=== PATIENT | female | born 1940 | race Caucasian/White ===

== ENCOUNTER 2016-02-20 10:30 | Outpatient (RCR) | payer MEDICARE ==
--- NOTE | 2016-01-18 13:15 | PT/OT/ST INITIAL EVALUATION ---
Department of Health and Human Services Form Approved Health Care Financing Administration OMB No. [id number] PLAN OF CARE/ASSESSMENT FOR OUTPATIENT REHABILITATION (Complete for Initial Claims Only) 1. LAST NAME Nolberto FIRST NAME Holly Guallpa 2. ACC # [id number] 3. [facility] [id number] 4. PROVIDER NO. [id number] 5. TYPE: X PT 6. REFERRING PHYSICIAN Dr. Graciela Tiardo 7. PRIMARY DX Unsteady gait and right 8th rib fracture. 8. SECONDARY DX 9. ONSET DATE 01/08/2016 10. REFERRAL DATE 01/11/2016 11. SOC. DATE/TIME 01/14/2016 10:22 12. PRIOR LEVEL OF FUNCTION; PERTINENT HISTORY (Prior therapy results, reason for referral.) S: Prior to today's session, the patient and her did consent to today's treatment including evaluation. The patient is a 75-year-old female who fell on 01/08/2016 after losing her balance. She hit a vanity and fractured her 8th rib on the right side. The patient isn't mentally responsive this date, therefore her provides most of the answers and information this date. He reports that the patient has had frequent falls over the last year with one resulting in a head injury requiring sameer and several falls have occurred outside of the home on uneven surfaces. Currently the patient is ambulating indoors without an assistive device, and will ascend and descend the 18 steps to their basement as recently as yesterday. The patient's does assist her with showers, as well as ambulates close by when they are ambulating outdoors. They do live in a house that has entry stairs with no handrail; therefore he does have to assist her with the stairs as well. Prior level of function: Within the last several months, the patient was working out at the [employer] on a regular basis; however, approximately 2 months ago the patient had decreased interest in exercising there. Current function: The patient is ambulating approximately 30 to 40 yards per her 's report prior to an onset of increased unsteadiness. The patient's also notes that she has had a decreased interest in exercise and is becoming more sedentary. Therapy History: The patient has had physical therapy services secondary to prior strokes, however, no recent therapy services in the last few months for this related issue. Maximal pain level is 2/10 along the right ribs, and is minimally aggravated due to improvements at this time. Past medical history: Includes a long history of seizures, and Dilantin use. The patient's does report she still has 1 to 2 absence-like seizures a week. She has a history of 3 CVAs within the last 2 years, the most significant affected her right side. History also includes arthritis, osteoporosis, and scoliosis. Medication list: Includes methotrexate, digoxin, metoprolol, prednisone, Keppra and warfarin. The patient does take Tylenol as needed as well. The patient's goal for physical therapy is to walk with better support 13. INITIAL ASSESSMENT/SAFETY PRECAUTIONS/MEDICAL COMPLICATIONS (Level of function at start of care. Be specific, use objective measures, list problems.) O: ASSESSMENT AND OBSERVATION: Assessment of the patient's sitting posture revealed a resting position with her eyes closed, she sits with a right trunk lean, but is able to self-correct to neutral alignment with verbal cues. Observation is transiting from [id number] reveals multiple attempts needed to successfully complete a [id number] transfer. She is able to maintain 2 minutes of sitting with neutral alignment without back support prior to fatigue. Observation of gait reveals shuffling gait pattern and difficulty with maintaining neutral alignment greater than 20 feet. PT assessed the patient's ability to ambulate 150 feet with hand-hold assist and contact guard in addition to this with 2 standing rest breaks and greater than 75% verbal cues for step elongation. STRENGTH: Right hip flexion 4/5, left 4/5. Knee flexion on the right 3+/5, left 3+/5. Knee extension bilaterally 5/5. Ankle dorsiflexion bilaterally 5/5. SPECIAL TESTING: The patient does score a 7 out 16 on the standing portion and 6 out of 12 on the gait portion of the Tinetti balance assessment with a total score of 13 out of 28. She demonstrates difficulty with alternating lower extremity movements. Her activities based confidence scale is a 22.5% confidence rating. TODAY'S TREATMENT: Today's treatment consisted of educating the patient and her on coordination activities related to the lower extremities and issuing the patient a home exercise program. 14. INITIAL POC: (Specify procedures, modalities, short and ferry terminal agent goals) A: The patient presents at physical therapy with a right 8th rib fracture as a result of a fall and diagnosis of unsteady gait. PROGNOSIS: Due to the patient's history of falls, as well as complicated medical history, she does have a fair prognosis. The patient does have excellent social support from her . OUTCOME ASSESSMENT: As stated prior her activities based confidence index is a 22.5% confidence in her gait. FUNCTIONAL LIMITATIONS: 1) Impaired lower extremity strength. 2) Impaired coordination of the lower extremities. 3) high fall risk based on the Tinetti balance assessment. 4) Impaired activity tolerance with standing and gait activities. SHORT TERM GOALS TO BE MET IN 3 WEEKS: 1. The patient will improve hip flexion, knee flexion strength to be 5/5 bilaterally. 2. The patient will ambulate 100 feet with contact guards this requiring less than 50% verbal cues for step-length elongation. 3. The patient will be able to maintain upright sitting a minimum of 5 minutes without back support. 4. The patient will be able to perform 5 mrg-nd-xohzo transfers in less than 2 minutes. RESIDENTIAL GOALS X6 WEEKS: 1. The patient will improve her Tinetti balance assessment score to be 19 out of 28 to decrease her risk of falling. 2. The patient will ambulate 200 feet with standby assist with an appropriate assistive device. 3. The patient and her will be educated and demonstrate independence with an updated home exercise program. 4. The patient will improve her activity-based confidence score to be greater than or equal to 50% confidence. The diagnosis, prognosis, treatment plan, as well as risks and expected outcome were discussed with the patient and her . They are in agreeable to today's established plan of care. PLAN: Plan to treat the patient 3 times per week for 6 weeks in order to address her unsteady gait and transfer difficulty. Treatment will include manual therapy techniques as needed to improve lower extremity coordination, therapeutic exercise emphasizing active, passive range of motion, as well as strengthening, gait, and balance training, improving proprioceptive and coordination, neuromuscular reeducation. The patient and her have been educated on recommendation on using an assistive device and further education will be provided as needed, as well as advancement of her home exercise program. Thank you for the referral of this patient. 15. FUNCTIONAL LEVEL (End of claim period) 17. PHYSICIAN SIGNATURE ? ON FILE OR ENTER HERE: 18. DATE: I certify the need for these services furnished under this plan of care and if for partial hospitalization. 19. CERTIFICATION FROM THROUGH FORM
[~2016-02-20 10:30] MED LIST: AC325T PO; CALC-185 PO; CAND8TAB4 PO; CEFD300C PO; CYAN100T PO; DGX.125T PO; DIGO125T PO; FOLI0.8T PO; FOLI20CA PO; LEVE100015 PO; LEVE10006 PO; LEVE500T PO; LOSA1TAB19 PO; METH2.5T IM; METO-270 PO; METO-272 PO; OMEG1CAP58 PO; PRD5T PO; PRED10TA22 PO; UBID50TA3 PO; VIT1TABL26 PO; WARF2TAB PO; WRF2T PO
[2016-03-06] MEDS ORDERED: LIDOVISC MT ×2 (13:41→13:49)
[2016-03-09] MEDS ORDERED: TRIA5PAS3 TOP (19:05)
[2016-03-09] MEDS ORDERED: HYDR-3702 PO (19:48)
[2016-04-03] MEDS ORDERED: METO-270 PO (10:35)
[2016-05-08] MEDS ORDERED: TRM50T PO (12:22)
[2016-05-08] MEDS ORDERED: WRF1T PO (12:22)
[2016-05-10] MEDS ORDERED: WARF1TAB PO (08:07)
== END 2016-03-13 09:13 | disposition home or self-care (01) ==
LOC: PT 10:30
PROVIDERS: ATTEND Family Medicine
DX: S22.31XD Fracture of one rib, right side, subsequent encounter for fracture with routine healing (principal); W01.190D Fall on same level from slipping, tripping and stumbling with subsequent striking against furniture, subsequent encounter; Z91.81 History of falling; R26.81 Unsteadiness on feet
CPT/HCPCS: 97001; 97110; 97112; 97116; 97530; G8978; G8979; G8980

== ENCOUNTER → 2016-03-06 | Outpatient (CLI) | payer MEDICARE ==
[~2016-03-06] MED LIST changes: +HYDR-3702 PO; +LIDOVISC MT; +TRIA5PAS3 TOP; +TRM50T PO; +WARF1TAB PO; +WRF1T PO
[2016-03-06 13:59] VITALS: BP 142/88
--- NOTE | 2016-03-06 13:59 | Urgent Care T Sheet Gen (E) ---
Intake General Temperature (Fahrenheit): 97.6 Pulse: 65 Blood Pressure Systolic: 142 Blood Pressure Diastolic: 88 Respirations: 20 SPO2: 100 Description of Symptoms Patient presents with caregiver complaining of oral lesions. First noticed on Thursday. Affects the lower gums/inner lip and base of tongue. Caregiver states the sores vary from circular, halos to long, white plaques. No history. Doesn' t wear dentures. Does take Prednisone 5mg daily however has been on that dose for years without issue. Called PCP yesterday and was prescribed Kenalog in [place] which has helped the appearance of the lesions however hasn't helped with pain. Caregiver states she doesn't want to eat secondary to pain. History of Present Illness Allergies: Coded Allergies: No Known Allergies (Verified Allergy, Unknown, 10/21/15) Home Meds Active Scripts Metoprolol Succinate 50 Mg Tab.er.24h50 Mg PO DAILY #30 TAB Ref 0 Prov:ROBERT CALDERON MD 03/19/15 Acetaminophen 325 Mg [id number] Mg PO Q6H PRN PAIN #0 TAB Ref 0 Prov:ROBERT CALDERON MD 03/19/15 Digoxin (Lanoxin)0.125 Mg Tab0.125 Mg PO DAILY #30 TAB Ref 0 Prov:ROBERT CALDERON MD 03/19/15 Warfarin 2 Mg Tablet1 Mg PO DAILY@1700 #0 TAB Ref 0 Prov:ROBERT CALDERON MD 03/19/15 Cefdinir 300 Mg [id number] Mg PO Q12HR #4 CAP Ref 0 Prov:ROBERT CALDERON MD 03/19/15 Reported Medications Folic Acid 0.8 Mg Tablet0.8 Mg PO DAILY 03/14/15 Levetiracetam (Keppra)1,000 Mg Tablet1,000 Mg PO DAILY@1700 03/14/15 Levetiracetam (Keppra)500 Mg Pln607 Mg PO DAILY 03/14/15 Calcium Carb&Cit/Mag12/Vit D3 (Calcium 500 Mg Tablet)1 Each Tablet3 Each PO DAILY 12/22/14 Cyanocobalamin (Vitamin B-12) (Vitamin B-12)100 Mcg Bxpdzh695 Mcg PO DAILY 12/22/14 Vit A,C & E/Lutein/Minerals (Ocuvite Tablet)1 Each Tablet1 Each PO DAILY 12/22/14 Stone-3 Fatty Acids/Fish Oil (Stone 3 1,000 mg Softgel)1 Each Capsule1 Each PO DAILY 12/22/14 Prednisone (Deltasone)5 Mg Tab5 Mg PO DAILY 12/22/14 Methotrexate Sodium (Methotrexate)2.5 Mg Gndpdf78.5 Mg IM EVERY Thursday07/21/13 Respiratory Constitutional Symptoms: No syptoms reported EENTM: Mouth Pain Respiratory: No symptoms reported All Other Systems Reviewed Remaining Systems: All other systems reviewed with negative findings Past [place]-Tlxqvr-Bafxco Hx Patient's Social History Alcohol Use: Denies Use Smoking Status: Never smoker Recent foreign travel: No Surgeries/Hospitalizations Hospitalization/Surgery Hx: scoliosis, petite mall seizures, lupus, pericarditis, a-fib, STROKE, A-fib, tubal Respiratory Respiratory History: None Cardiovascular Cardiovascular History: Hypertension, Arrhythmia, Pericarditis Comment: valve problem Neuro/Muscular Neuro/Muscular History: Stroke, Headache, Memory Loss, Seizures Comment: scoliosis, Stroke with Rt sided weakness, confussion, weakness Reproductive System Sexually Transmitted Diseases: No Genitouinary Genitourinary History: None Gastrointestinal GI/Endocrine History: Diarrhea, Hemorrhoids Diabetes Diabetes: No HEENT Impaired Vision: Glasses Hearing Impaired: None Integumentary Integumentary History: None Comment: laceration Cancer History of Cancer?: No Psychosocial Behavior Disorders: None Blood Transfusions Hx of Blood transfusions: No Reaction to blood transfusion: No Physical Exam Physical Exam General Appearance: WD/WN Eyes, Ears, Nose, Throat Ex: Other (examination of mouth reveals several canker sores along the lower gums/base of tongue. there is a white, thicker film within the mouth but I believe it is residue from the kenalog. scraping away the film doesn't cause any bleeding to the area or discomfort. tongue and buccal mucosa have no film or sores.) Comment lethargic Departure Urgent Care Impression Impression: Primary Impression: Mouth sores Departure Disposition: 01 HOME OR SELF-CARE Condition: Stable Referrals: LOU STEVENSON MD (PCP) Additional Instructions: I agree with use of Kenalog in [place]. Patient's caregiver states it has helped the appearance of the lesions but hasn't helped with the pain. I have prescribed Visc Lidocaine which can be applied to affected areas q 2 hrs prn pain. F/U with PCP if no better. Thrush is a possibility however her presentation seemed more canker sore/viral vs yeast. Patient's caregiver understands DC instructions. All questions were answered. Scripts Lidocaine HCl (Xylocaine 2% Viscous)100 Ml Soln1 Ml MT Q2H W/A PRN PAIN #50 ML Apply to affected area q 2 hrs prn pain Prov:SHIRA BARNES 03/06/16 End of report . SHIRA BARNES Mar 06, 2016 13:59
== END ==
LOC: MHUC 12:55
PROVIDERS: ATTEND Physician Assistant
DX: K13.79 Other lesions of oral mucosa (principal)
CPT/HCPCS: 99213

== ENCOUNTER 2016-03-09 18:32 | Emergency (ER) | payer MEDICARE ==
[~2016-03-09] VITALS: Ht 165.1 cm; Wt 50.9 kg
[~2016-03-09 18:32] MED LIST changes: -HYDR-3702 PO; -TRIA5PAS3 TOP; -TRM50T PO; -WARF1TAB PO; -WRF1T PO
[2016-03-09] MEDS ORDERED: TRIA5PAS3 TOP (19:05)
[2016-03-09] MEDS ORDERED: ED- PREDNISONE 10 MG (DELTASONE) 10 TABLETS/BTL PO ONE (19:40)
[2016-03-09] MEDS ORDERED: ED- HYDROcodone/ACETAMINOPHEN 5MG/325MG (NORCO) 6 TABLETS/BTL PO ONE (19:40)
[2016-03-09] MEDS ORDERED: HYDR-3702 PO (19:48)
[2016-03-09 20:07] VITALS: BP 167/77
[2016-04-03] MEDS ORDERED: METO-270 PO (10:35)
[2016-05-08] MEDS ORDERED: WRF1T PO (12:22)
[2016-05-08] MEDS ORDERED: TRM50T PO (12:22)
[2016-05-10] MEDS ORDERED: WARF1TAB PO (08:07)
== END 2016-03-09 20:00 | disposition home or self-care (01) ==
LOC: ED 18:35
DX: K12.0 Recurrent oral aphthae (principal)
CPT/HCPCS: 99283; A9270

== ENCOUNTER → 2016-04-03 | Emergency (ER) | payer MEDICARE ==
[~2016-04-03] VITALS: Ht 157.5 cm; Wt 51.0 kg
[2016-04-03 11:39] VITALS: BP 167/83
== END | disposition home or self-care (01) ==
LOC: ED 09:16
DX: S01.01XA Laceration without foreign body of scalp, initial encounter (principal); S00.03XA Contusion of scalp, initial encounter; S51.811A Laceration without foreign body of right forearm, initial encounter; W18.30XA Fall on same level, unspecified, initial encounter; Z91.81 History of falling; Y93.01 Activity, walking, marching and hiking; Y92.009 Unspecified place in unspecified non-institutional (private) residence as the place of occurrence of the external cause; F03.90 Unspecified dementia, unspecified severity, without behavioral disturbance, psychotic disturbance, mood disturbance, and anxiety; N39.0 Urinary tract infection, site not specified
CPT/HCPCS: 12001; 70450; 99283

== ENCOUNTER 2016-05-08 11:31 | Observation (INO) | payer MEDICARE ==
[~2016-05-08] VITALS: Ht 167.6 cm; Wt 50.7 kg
[2016-05-08 12:37] LABS: BASOPHILS % (AUTO) 0 % (0-2); EOSINOPHILS # (AUTO) 0.1 10^3uL; EOSINOPHILS % (AUTO) 1 % (0-4); LYMPHOCYTES # (AUTO) 1.5 X10^3; MEAN CORPUSCULAR HGB CONC 31.6 g/dL (31.0-37.0); MEAN CORPUSCULAR VOLUME 101 FL (80-100); MEAN PLATELET VOLUME 11.9 FL (6.0-9.5); MONOCYTES % (AUTO) 7 % (3-11); NEUTROPHILS # (AUTO) 11.4 X10^3; NEUTROPHILS % (AUTO) 80 % (51-67); PLATELET COUNT 242 10^3uL (150-450); WHITE BLOOD COUNT 14.16 10^3uL (4.0-11.0)
--- NOTE | 2016-05-08 12:46 | NUR ---
Patient has occasional swallowing but no blood expelled from mouth or nose.
[2016-05-08 12:48] LABS: ANION GAP 14.8 MEQ/L (3-15); TOTAL PROTEIN 7.7 g/dL (6.4-8.5)
[2016-05-08 12:54] LABS: CALCULATED IONIZED CALCIUM 5.5 mg/dL (3.8-4.6)
--- NOTE | 2016-05-08 13:47 | NUR ---
Received report from [facility]. Rafia Schofield CNA from Med/Surg will bring patient to floor.
--- NOTE | 2016-05-08 13:55 | NUR ---
Pt admitted to room 312 via w/c accompanied by and Rafia VASQUES. IV SL intact to Rt wrist. Old skin tear noted to RB, Rt middle finger and left elbow. no bleeding from these sites. Scattered bruising to BLE. See admission database for further assessment.
[2016-05-08 14:00] VITALS: BP 172/114
[2016-05-08] MEDS ORDERED: ACETAMINOPHEN 325 MG TAB (TYLENOL) PO PRN (14:20)
[2016-05-08] MEDS ORDERED: ONDANSETRON 2 MG/ML (Z0FRAN) 2 ML VIAL IV PRN (14:20)
[2016-05-08 14:35] VITALS: BP 172/114
[2016-05-08] MEDS ORDERED: NS FLUSH 10 ML PRN IV (14:45)
[2016-05-08] MEDS ORDERED: NS FLUSH 3 ML PRN IV (14:45)
--- NOTE | 2016-05-08 15:50 | NUR ---
Fernie from speech therapy completes swallow eval and diet order edited to reflect recommendations.
[2016-05-08 16:00] VITALS: BP 171/93
[2016-05-08] MEDS ORDERED: LEVETIRACETAM 500 MG (KEPPRA) TABLET PO SCH (17:00)
[2016-05-08] MEDS: LEVETIRACETAM 500 MG/5 ML PO SCH (17:11)
--- NOTE | 2016-05-08 17:19 | NUR ---
MED REC COMPLETE--current med list obtained from external med history application and list provided by patient's PCP (Candida).
[2016-05-08] MEDS: NS W/KCL 20 MEQ/L 1,000 ML IV SCH (17:57)
--- NOTE | 2016-05-08 18:37 | NUR ---
Patient has displayed no s/s of pain this afternoon/evening. Is sometimes able to communicate needs such as bathroom, but not always able to voice what she needs. Sometimes incontinent, sometimes uses BSC. Patient is a feeder and took food well.
--- NOTE | 2016-05-08 19:45 | NUR ---
Pt resting quietly in bed. Responds to voice. at bedside, very attentive.
[2016-05-09 00:13] VITALS: BP 176/82
[2016-05-09] MEDS: NS W/KCL 20 MEQ/L 1,000 ML IV SCH (03:57)
--- NOTE | 2016-05-09 05:41 | NUR ---
Pt rests quietly throughout the night. Occasionally sets off safety alarms, toileted at those times. Intermittent incontinent episodes. Pt stands and pivots to BSC with staff assist x2. No s/s of pain. IVF infusing w/o difficulty.
[2016-05-09 06:06] LABS: BASOPHILS % (AUTO) 0 % (0-2); EOSINOPHILS # (AUTO) 0.5 10^3uL; EOSINOPHILS % (AUTO) 3 % (0-4); LYMPHOCYTES # (AUTO) 2.5 X10^3; MEAN PLATELET VOLUME 11.8 FL (6.0-9.5); MONOCYTES # (AUTO) 1.3 X10^3; MONOCYTES % (AUTO) 9 % (3-11); NEUTROPHILS # (AUTO) 10.3 X10^3; NEUTROPHILS % (AUTO) 70 % (51-67); PLATELET COUNT 233 10^3uL (150-450); WHITE BLOOD COUNT 14.64 10^3uL (4.0-11.0)
[2016-05-09 06:08] LABS: MEAN CORPUSCULAR HGB CONC 31.5 g/dL (31.0-37.0); MEAN CORPUSCULAR VOLUME 102 FL (80-100)
[2016-05-09 06:52] LABS: ALBUMIN 3.6 g/dL (3.4-5.0); ANION GAP 12.3 MEQ/L (3-15); CALCULATED IONIZED CALCIUM 5.3 mg/dL (3.8-4.6); TOTAL PROTEIN 7.4 g/dL (6.4-8.5)
--- NOTE | 2016-05-09 07:25 | NUR ---
Patient sitting up in bed upon shift assessment. Disoriented to person, place, and time. Does not answer questions appropriately. No apparent signs of pain or distress. Old scattered bruising noted but no acute signs of bleeding. HR irregular at a rate of 74 bpm. Lung sounds CTAB. IVF infusing into right wrist IV site without difficulty. TABS, yellow gown, and bed alarm intact for safety. Will continue to monitor.
[2016-05-09 07:36] VITALS: BP 164/103
[2016-05-09] MEDS: NS FLUSH 3 ML DAILY IV SCH (08:28)
[2016-05-09] MEDS: VIT A,C & E/LUTEIN/MINERALS (I-VITE) TABLET PO SCH (08:29)
[2016-05-09] MEDS: meTOprolol TARTRATE 25 MG (LOPRESSOR) TABLET PO SCH (08:29)
[2016-05-09] MEDS: predniSONE 5 MG (DELTASONE) TABLET PO SCH (08:30)
[2016-05-09] MEDS: DIGOXIN 0.125 MG (LANOXIN) TAB PO SCH (08:30)
[2016-05-09] MEDS: OMEGA-3 FATTY ACIDS (FISH OIL) 500 MG CAPSULE PO SCH (08:30)
[2016-05-09] MEDS: FOLIC ACID 0.4 MG TABLET PO SCH (08:30)
[2016-05-09] MEDS ORDERED: LEVETIRACETAM 500 MG (KEPPRA) TABLET PO SCH (09:00)
[2016-05-09] MEDS: LEVETIRACETAM 500 MG/5 ML PO SCH ×2 (10:58→17:04)
[2016-05-09] MEDS: CYANOCOBALAMIN 100 MCG PO SCH (10:58)
[2016-05-09 11:31] VITALS: BP 143/90
[2016-05-09 15:32] VITALS: BP 140/74
--- NOTE | 2016-05-09 18:16 | NUR ---
Patient sitting up in recliner. Disoriented X3. No apparent signs of pain or distress. No bleeding noted throughout day shift. at bedside intermittently. Tolerating thickened liquids well. Will continue to monitor.
--- NOTE | 2016-05-09 19:33 | NUR ---
Pt up to chair, resting quietly with eyes closed. No apparent s/s of distress.
[2016-05-10 00:06] VITALS: BP 153/86
[2016-05-10 05:37] LABS: BASOPHILS % (AUTO) 0 % (0-2); EOSINOPHILS # (AUTO) 0.4 10^3uL; EOSINOPHILS % (AUTO) 3 % (0-4); LYMPHOCYTES # (AUTO) 2.8 X10^3; MEAN PLATELET VOLUME 11.7 FL (6.0-9.5); MONOCYTES # (AUTO) 1.2 X10^3; MONOCYTES % (AUTO) 9 % (3-11); NEUTROPHILS # (AUTO) 8.1 X10^3; NEUTROPHILS % (AUTO) 64 % (51-67); PLATELET COUNT 237 10^3uL (150-450)
[2016-05-10 05:39] LABS: MEAN CORPUSCULAR HEMOGLOBIN 31.7 PG (26.0-34.0); MEAN CORPUSCULAR HGB CONC 31.7 g/dL (31.0-37.0); MEAN CORPUSCULAR VOLUME 100 FL (80-100)
--- NOTE | 2016-05-10 06:14 | NUR ---
Pt rests intermittently throughout the night. Restless at times. Pt nods yes when asked if she needs to have a bowel movement. Attempts multiple times, but no results yet. SL intact. Resp even and non labored on RA. Bed and tab alarm set for safety.
[2016-05-10 07:15] VITALS: BP 149/83
[2016-05-10] MEDS: NS FLUSH 3 ML DAILY IV SCH (09:00)
[2016-05-10] MEDS: VIT A,C & E/LUTEIN/MINERALS (I-VITE) TABLET PO SCH (09:25)
[2016-05-10] MEDS: DIGOXIN 0.125 MG (LANOXIN) TAB PO SCH (09:25)
[2016-05-10] MEDS: FOLIC ACID 0.4 MG TABLET PO SCH (09:25)
[2016-05-10] MEDS: CYANOCOBALAMIN 100 MCG PO SCH (09:25)
[2016-05-10] MEDS: LEVETIRACETAM 500 MG/5 ML PO SCH (09:25)
[2016-05-10] MEDS: predniSONE 5 MG (DELTASONE) TABLET PO SCH (09:25)
[2016-05-10] MEDS: OMEGA-3 FATTY ACIDS (FISH OIL) 500 MG CAPSULE PO SCH (09:25)
[2016-05-10] MEDS: meTOprolol TARTRATE 25 MG (LOPRESSOR) TABLET PO SCH (09:25)
--- NOTE | 2016-05-10 09:30 | NUR ---
Gave medications one at a time with sips of water. No difficulty swallowing with thickened water.
--- NOTE | 2016-05-10 11:25 | NUR ---
Gave the patient's discharge instructions. Informed him that Coumadin dose was lowered to 1mg. Also reminded him about speech therapy consult as an outpatient on Thursday. demonstrated verbal understanding.
--- NOTE | 2016-05-10 11:30 | NUR ---
Patient dismissed per wheelchair accompanied by a MUFF WINDER.
== END 2016-05-10 11:30 | disposition home or self-care (01) ==
LOC: ED 11:33 → MED/SURG 13:27
PROVIDERS: ADMIT Family Medicine; ATTEND Family Medicine
DX: R04.0 Epistaxis (principal); D68.32 Hemorrhagic disorder due to extrinsic circulating anticoagulants; K13.79 Other lesions of oral mucosa; T45.515A Adverse effect of anticoagulants, initial encounter; Z66 Do not resuscitate; R13.10 Dysphagia, unspecified; M32.19 Other organ or system involvement in systemic lupus erythematosus; G40.909 Epilepsy, unspecified, not intractable, without status epilepticus; I48.91 Unspecified atrial fibrillation; I42.9 Cardiomyopathy, unspecified; N18.3 Chronic kidney disease, stage 3 (moderate); I69.351 Hemiplegia and hemiparesis following cerebral infarction affecting right dominant side; Z85.828 Personal history of other malignant neoplasm of skin
CPT/HCPCS: 31720; 36415; 71010; 80048; 80053; 85025; 85610; 92526; 92610; 96365; 96366; 99283; A9270; G0378; G8996; G8997; 99218; 99284

== ENCOUNTER 2016-05-28 14:00 | Outpatient (RCR) | payer MEDICARE ==
--- NOTE | 2016-05-20 09:33 | PT/OT/ST INITIAL EVALUATION ---
Department of Health and Human Services Form Approved Health Care Financing Administration OMB No. [id number] PLAN OF CARE/ASSESSMENT FOR OUTPATIENT REHABILITATION (Complete for Initial Claims Only) 1. PATIENT'S NAME Holly Arvizu 2. ACC # [id number] [facility]. [facility] [id number] 4. PROVIDER NO. 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 PRIOR HOSPITALIZATION May 08, 2016 7. PRIMARY DX Dysphagia 8. SECONDARY DX 9. ONSET DATE May 08, 2016 10. REFERRAL DATE May 09, 2016 11. SOC. DATE May 14, 2016 12. TIME OF EVAL 15:36 12. REFERRING PHYSICIAN Fabiola Zhu APRN 13. CHARGES/UNITS 14. G CODES Currently [id number] Goal [id number] 15. PRIOR LEVEL OF FUNCTION; PERTINENT HISTORY (Prior therapy results, reason for referral.) S: Prior to therapy, the patient consented to today's evaluation and treatment. The patient is a 76-year-old female referred to speech therapy by Fabiola Zhu APRN to address dysphagia. The patient's accompanied her to the appointment and gave all information. Personal health rating: He rates her overall and general health as good. Primary Complaint: The patient was admitted to the hospital on May 08, 2016 for bleeding in her mouth. Her Coumadin dose had been decreased recently and even despite that, her INR was 4.2. They did suctioning while she was in the ER and it seemed to stop that, but she was then placed in the hospital for observation of bleeding and she began having swallowing difficulties and her states that she has had the swallowing difficulties for a couple of months now. Prior level of function: Prior to this she was not having any difficulty with swallowing. Therapy History: She did receive therapy May 08 while she was in the hospital. Social history: She lives at home with her who cares for her. Aggravating factors: Include liquids. Diagnostic testing: She has had no diagnostic testing. Past medical history: Includes arthritis, seizure disorder, Lupus, osteoporosis, pneumonia, GERD, hemorrhoids, A-fib, multiple CVAs, scoliosis, lumbar spinal stenosis, skin cancer and anxiety. Past surgical history: Includes tubal ligation and open heart surgery. Current medications: Medications are listed in the patient's chart. The patent's medications do not appear to affect any therapy. 16. INITIAL ASSESSMENT/SAFETY PRECAUTIONS/MEDICAL COMPLICATIONS (Level of function at start of care. Be specific, use objective measures, list problems.) O: ASSESSMENT: Upon assessment the patient was given a bedside swallow. She demonstrated no labial or lingual weakness. She had proper velar and laryngeal elevation. The patient had all of her own teeth. She was given crackers and was able to masticate these and clear her oral cavity independently. She swallowed them with no outward signs or symptoms of aspiration. She had proper A to P transfer and no delay in initiation of swallowing. She was given thin liquids and had coughing on this and therefore, given nectar-thick liquids and she demonstrated no outward signs or symptoms of aspiration with nectar-thick liquids. TODAY'S TREATMENT: Included going over pharyngeal exercises with the patient and her . These were demonstrated to her and they were instructed to do these 2 or 3 times a day and we would also work on them in therapy as well as work on progression of diet. It was recommended for the patient to eat a regular diet with nectar-thick liquids and take pills whole in the nectar-thick liquids or apple sauce. 17. INITIAL POC: (Specify procedures, modalities, short and skilled nursing goals) A: PROGNOSIS: Due to a personal health rating of good, the patient has a good prognosis for therapy. INFORMED CONSENT: The diagnosis, prognosis, treatment plan, risks and expected outcomes were discussed with the patient and her and they agreed to today's established plan of care. P: Plan to treat the patient 1 time a week for 6 weeks in order to address dysphasia. Therapy to include pharyngeal exercises and increase in diet tolerance. 18. FREQUENCY 1 time a week 19. DURATION 6 weeks 20. FUNCTIONAL LEVEL (End of claim period) 21. PHYSICIAN SIGNATURE ? ON FILE OR ENTER HERE: 22. DATE: I certify the need for these services furnished under this plan of care and if for partial hospitalization. 23. CERTIFICATION FROM THROUGH [facility]-700
[~2016-05-28 14:00] MED LIST changes: +HYDR-3702 PO; +TRIA5PAS3 TOP; +TRM50T PO; +WARF1TAB PO; +WRF1T PO
== END 2016-06-02 16:10 | disposition home or self-care (01) ==
LOC: ST 14:00
PROVIDERS: ATTEND Nurse Practitioner
DX: R13.13 Dysphagia, pharyngeal phase (principal)
CPT/HCPCS: 92526; 92610; G8996; G8997